=== PATIENT | male | born 1980 | race African-American/Black ===

== ENCOUNTER 2024-06-25 07:56 | Outpatient (CLI) | payer BC, SELFPAY | END 2024-06-25 07:57 | disposition home or self-care (01) | LOC: WOUND 08:00 | PROVIDERS: PCP Internal Medicine; Visit Provider Nurse Practitioner Family | DX: L89.523 Pressure ulcer of left ankle, stage 3 (principal); I10 Essential (primary) hypertension | CPT/HCPCS: 11042; G0463 ==

== ENCOUNTER 2024-07-02 15:18 | Outpatient (CLI) | payer BC, SELFPAY | END 2024-07-02 15:19 | disposition home or self-care (01) | LOC: WOUND 15:19 | PROVIDERS: PCP Internal Medicine; Visit Provider Nurse Practitioner Family | DX: L89.523 Pressure ulcer of left ankle, stage 3 (principal); I10 Essential (primary) hypertension | CPT/HCPCS: 87070; 97597 ==

== ENCOUNTER 2024-07-08 09:48 | Outpatient (CLI) | payer BC, SELFPAY | END 2024-07-08 09:49 | disposition home or self-care (01) | LOC: WOUND 09:48 | PROVIDERS: PCP Internal Medicine; Visit Provider Physician Assistant Surgical | DX: L89.523 Pressure ulcer of left ankle, stage 3 (principal) | CPT/HCPCS: 11042 ==

== ENCOUNTER 2024-07-15 15:11 | Outpatient (CLI) | payer BC, SELFPAY | END 2024-07-15 15:12 | disposition home or self-care (01) | LOC: WOUND 15:11 | PROVIDERS: PCP Internal Medicine; Visit Provider Nurse Practitioner Family | DX: L89.524 Pressure ulcer of left ankle, stage 4 (principal); I10 Essential (primary) hypertension | CPT/HCPCS: 11042 ==

== ENCOUNTER 2024-07-21 15:05 | Outpatient (CLI) | payer BC, SELFPAY | END 2024-07-21 15:06 | disposition home or self-care (01) | LOC: WOUND 15:05 | PROVIDERS: PCP Internal Medicine; Visit Provider Surgery | DX: L89.524 Pressure ulcer of left ankle, stage 4 (principal); I10 Essential (primary) hypertension | CPT/HCPCS: 87070; 87186; 97597 ==

== ENCOUNTER 2024-07-27 13:26 | Outpatient (CLI) | payer BC, SELFPAY | END 2024-07-27 13:27 | disposition home or self-care (01) | LOC: WOUND 13:27 | PROVIDERS: PCP Internal Medicine; Visit Provider Nurse Practitioner Family | DX: L89.524 Pressure ulcer of left ankle, stage 4 (principal); I10 Essential (primary) hypertension | CPT/HCPCS: 11042 ==

== ENCOUNTER 2024-07-27 13:39 | Outpatient (CLI) | payer BC, SELFPAY ==
--- NOTE | 2024-07-27 15:30 | CRLHL7_ITS ---
For Patients: As a result of the 21st Century Cures Act, medical imaging exams and procedure reports are released immediately into your electronic medical record. You may view this report before your referring provider. If you have questions, please contact your health care provider. EXAM: MRI OF THE LEFT ANKLE, WITHOUT AND WITH IV CONTRAST CLINICAL INDICATION: Achilles wound. COMPARISON PLAIN FILMS: None. COMPARISON CROSS-SECTIONAL IMAGING STUDIES: None. TECHNICAL: Axial, sagittal and coronal T1, PD, PD FS and STIR images precontrast. Postcontrast T1 weighted imaging with fat saturation. Contrast: Dotarem, 17 mL IV. FINDINGS: TENDONS AND SOFT TISSUES: Achilles Tendon: There are 2 ulcerations in the dorsal subcutaneous tissues overlying the distal Achilles tendon with tracts that extend into the substance of the Achilles tendon. There is heterogeneous increased signal and expansion of the mid to distal Achilles tendon. Enhancement along the tracts and within the substance of the tendon. The enhancement extends 5.1 cm in CC dimension. Findings consistent with a combination of infection, tendinopathy and tearing within the Achilles tendon. In addition there is a [id number]-[id number] amount of intramedullary edema and a moderate amount of intramedullary enhancement in the posterior calcaneus centered at the Achilles insertion. Although findings could be reactive, early changes of osteomyelitis can not be excluded. Flexor Tendons: The posterior tibial, flexor digitorum longus and flexor hallucis longus tendons are intact. Extensor Tendons: The anterior extensor tendons are intact. Peroneal Tendons: The peroneus longus and brevis tendons are intact. No subluxation of the peroneal tendons. Dorsal subcutaneous edema. No subcutaneous abscess. OSSEOUS STRUCTURES: No additional osseous findings. JOINT SPACES: The ankle joint space is maintained without joint effusion or synovitis. No talar dome osteochondral lesion. No joint bodies are identified. The subtalar joints are maintained. The talonavicular and calcaneocuboid joint spaces are maintained. Joint spaces within the visualized midfoot and at the midfoot forefoot junction are maintained. LIGAMENTS: Syndesmotic Ligaments: The anterior and posterior syndesmotic ligaments are intact. Lateral Ligaments: The anterior talofibular ligament is intact. The calcaneofibular ligament is intact. The posterior talofibular ligament is intact. Medial Ligaments: The superficial and deep components of the deltoid ligament complex are maintained. Spring Ligaments: The calcaneonavicular spring ligament complex is intact. TARSAL TUNNEL: The soft tissues of the tarsal tunnel are normal without mass or fluid collection. No abnormality along the course of the medial or lateral plantar nerves. SINUS TARSI: The structures of the sinus tarsi appear normal. No disruption of the interosseous ligaments or significant effacement of fat. PLANTAR SOFT TISSUES: The plantar fascia is intact. No atrophy or edema of the abductor digiti minimi muscle belly. IMPRESSION: 1. Two ulcerations dorsal to the distal Achilles tendon with tracks that extend into the substance of the tendon. Increased signal, expansion and enhancement within the substance of the mid to distal Achilles tendon consistent with infection, tendinopathy and Achilles tendon tearing. 2. Edema and enhancement in the posterior aspect of the calcaneus centered at the Achilles insertion. Although findings could be reactive, early changes of osteomyelitis can not be excluded. 3. Remainder unremarkable. Dictated by Cyrus Monet MD @ 07/28/2024 7:32:31 AM (Electronically Signed)
== END 2024-07-27 13:40 | disposition home or self-care (01) ==
PROVIDERS: PCP Internal Medicine; Visit Provider Nurse Practitioner Family
DX: L89.524 Pressure ulcer of left ankle, stage 4 (principal)
CPT/HCPCS: 73723

== ENCOUNTER 2024-08-02 09:03 | Day surgery (SDC) | payer BC, SELFPAY ==
[2024-08-02] VITALS (17 sets, daily range): BP systolic 114–152; BP diastolic 67–93; PULSE 63–82; RESP 16; TEMP 35.8–36.8; O2SAT 95–100; BMI 31.9
[2024-08-02] MEDS: LACTATED RINGERS 1000 ML 1,000 ML 100 ML IV (10:00)
[2024-08-02] MEDS: SODIUM CHLORIDE 0.9 % (FLUSH) 10 ML SYRINGE IVF (10:00)
[2024-08-02] MEDS: MIDAZOLAM HCL 1 MG/ML inj IVP (10:16)
[2024-08-02] MEDS: fentaNYL 100 MCG/2 ML inj IVP (10:16)
--- NOTE | 2024-08-02 10:23 | SUR.PREOP ---
TIME?OUT:?1016 PT/RN/MDA?VERIFICATION?OF?SURGICAL?SITE,?PROCEDURE,?AND?CONSENT OBTAINED?PRIOR?TO?INVASIVE?PROCEDURE.
[2024-08-02] MEDS: CEFAZOLIN 1 GM inj IVP (10:35)
--- NOTE | 2024-08-02 10:53 | P.NB_ITS ---
Nerve Block Nerve Block Time Seen by Provider: 10:16 Date Seen: 08/02/24 Type of block requested by surgeon for post-operative analgesia: popliteal Side: left Time out performed: Yes Verification of patient name: Yes Verification of date of : Yes Site marking: site marked Name of person performing procedure: Tom Continuous monitoring Was continuous monitoring of O2 sat, B/P, manager monitoring, recorded every 15 minutes?: Yes Procedure Checklist: sterile prep, needles and gloves Ultrasound guided. Images saved: Yes Medications given in 5ml increments after negative aspiration: Marcaine %: 0.25 mL: 20 Needle gauge: 22 Patient tolerated procedure well: Yes Additional comments: Needle noted adjacent to nerve Block Charges Block Charge (with Pro Fee): Sciatic Nerve Use of Ultrasound Machine for Block: Yes- US Guidance/pain block
--- NOTE | 2024-08-02 12:08 | P.ANES_ITS ---
Anesthesia Charges Start Date/Time Anesthesia Start Date: 08/02/24 Anesthesia Start Time: 10:24 Stop Date/Time Anesthesia Stop Date: 08/02/24 Anesthesia Stop Time: 12:05 Coding CPT Codes CPT Codes: ANESTH LOWER LEG SURGERY - 90968 ([id number]) P2 - PATIENT W/MILD SYST DISEASE, QK - CORRUGATOR MACHINE OPERATOR 2-4 CNCRNT ANES PROC, QX - JANITOR HEAD SVC W/ MD MED DIRECTION
--- NOTE | 2024-08-02 12:08 | W.ANESCHARGE ---
Anesthesia Charges Start Date/Time Anesthesia Start Date: 08/02/24 Anesthesia Start Time: 10:24 Stop Date/Time Anesthesia Stop Date: 08/02/24 Anesthesia Stop Time: 12:05 Coding CPT Codes CPT Codes: ANESTH LOWER LEG SURGERY - 88339 ([id number]) P2 - PATIENT W/MILD SYST DISEASE, QK - INTERACTIVE ACCOUNT MANAGER 2-4 CNCRNT ANES PROC, QX - FIELD RADIO TECHNICIAN SVC W/ MD MED DIRECTION
--- NOTE | 2024-08-02 12:19 | P.ANES_ITS ---
Anesthesia Charges Start Date/Time Anesthesia Start Date: 08/02/24 Anesthesia Start Time: 10:24 Stop Date/Time Anesthesia Stop Date: 08/02/24 Anesthesia Stop Time: 12:05 Coding CPT Codes CPT Codes: ANESTH LOWER LEG SURGERY - 31570 ([id number]) P2 - PATIENT W/MILD SYST DISEASE, QK - SAP SPECIALIST 2-4 CNCRNT ANES PROC, QX - RESIDENTIAL NURSE SVC W/ MD MED DIRECTION
--- NOTE | 2024-08-02 12:19 | W.ANESCHARGE ---
Anesthesia Charges Start Date/Time Anesthesia Start Date: 08/02/24 Anesthesia Start Time: 10:24 Stop Date/Time Anesthesia Stop Date: 08/02/24 Anesthesia Stop Time: 12:05 Coding CPT Codes CPT Codes: ANESTH LOWER LEG SURGERY - 03024 ([id number]) P2 - PATIENT W/MILD SYST DISEASE, QK - RN RENAL 2-4 CNCRNT ANES PROC, QX - ECLECTIC DOCTOR SVC W/ MD MED DIRECTION
--- NOTE | 2024-08-02 12:40 | W.PODPROC_ITS ---
Date of Procedure: 08/02/24 Surgeon: Derek Hargrove DPM Pre-op Diagnosis: 1. Infected left Achilles tendon repair site 2. Possible osteomyelitis left calcaneus Post-op Diagnosis: 1. Infected left Achilles tendon repair site 2. Possible osteomyelitis left calcaneus Type of Procedure: 1. I and D left Achilles tendon 2. Bone biopsy left calcaneus Indications: Patient sustained an Achilles tendon rupture in [facility] where he had initial surgery. He subsequently had an infection and suture removed. [facility] wound that has not progressed to healing. MRI indicated possible osteomyelitis of the calcaneus. He is in need of I and D of the Achilles repair site with bone biopsy. I reviewed the procedure, recovery, expectation potential complications with the patient. These include but are not limited to: Poor wound healing, continued infection, potential need for future surgery, deep venous thrombosis, pulmonary embolism possible . He understands risks written consent was obtained. Site marked. Procedure Description: Patient brought the operating room placed under general anesthesia. He was given a preoperative popliteal block by Anesthesia. He was rolled into a prone position and padded appropriately on the operating table. Left foot lower leg were then prepped and draped in sterile fashion. Standard time-out protocol followed. Left lower leg was exsanguinated the tourniquet inflated. Linear incision was started proximal to the open wound midline Achilles tendon. Incision then ellipsed the open 2 wounds combining distally. The skin rash and open ulcer were excised. The granular tissue from the wound bed was excised with a rongeur. There was a large sinus track between medial and lateral portions of the Achilles tendon. Within this sinus tract there was a large amount of nonabsorbable suture. I carefully excised the necrotic tendon away from the suture and the suture was removed in total. Anterior to this collection of suture the calcaneus was exposed. Bone felt firm and hard with normal coloration. [employer] biopsy punch was used to obtain a 1 cm core of calcaneus from this exposed area. This was sent to pathology in formalin. Deep wound culture was obtained same area sent for culture sensitivities. All necrotic fat and tendon was excised. Only viable tissue remained. Wound was thoroughly irrigated normal sterile saline. Enough necrotic tendon was debrided that we were able to primarily close the wound with 3-0 nylon utilizing multiple retention sutures. No deeper tissue was left behind. Sterile dressing was applied. Tourniquet was released. Normal capillary fill time returned all digits. He was placed in a well-padded [id number] plaster splint. He was transferred from OR to PACU vital signs stable and vascular status intact to the left lower extremity. Tomorrow will be nonweightbearing. He is given both written and verbal postoperative instructions. He is given oxycodone for pain. He follow-up in clinic in 3 days. He will continue current antibiotics. Anesthesia: GETA and regional Hemostasis: thigh Estimated blood loss (mL): 2 Specimens: other (Deep space culture) Disposition: PACU
[2024-08-02] MEDS: METOCLOPRAMIDE HCL 5 MG/ML INJ 10 MG IVP (13:57)
--- NOTE | 2024-08-02 14:07 | SUR.PHASEII ---
Patient had a 300cc emesis at 1345, Reglan given. Patient reports no further nausea.
--- NOTE | 2024-08-02 14:37 | REH.PT ---
Pt is s/p R Achilles tendon debridement. Pt was fitted for 2ww and issued for home use. Instructed pt in gt level surfaces, basic transfers and verbally instructed car transfers. Goals of PT were met. DC. No Charge.
--- NOTE | 2024-08-02 15:06 | SUR.PHASEII ---
Patient with PT for walker training at 1430.
== END 2024-08-02 14:45 | disposition home or self-care (01) ==
LOC: OR 09:05
PROVIDERS: PCP Internal Medicine; Visit Provider Podiatrist
PROC: (CPT 27654; principal; 2024-08-02 10:15)
DX: T81.42XA Infection following a procedure, deep incisional surgical site, initial encounter (principal); M86.172 Other acute osteomyelitis, left ankle and foot; B95.61 Methicillin susceptible Staphylococcus aureus infection as the cause of diseases classified elsewhere; G89.18 Other acute postprocedural pain; I10 Essential (primary) hypertension
CPT/HCPCS: 27654; 20240; 01470; 64445; 76942; 87070; 87075; 87186; 87205; 88307; 88311; J0330; J0665; J0690; J1100; J2250; J2405; J2704; J2765; J3010; J3490; J7120